=== PATIENT | male | born 1965 | race Hispanic/Latino ===

== ENCOUNTER 2018-11-20 07:18 | Day surgery (SDC) | payer OTHER ==
[2018-11-19 12:16] VITALS: BMI 39.5
--- NOTE | 2018-11-19 22:37 | HP ---
HISTORY OF PRESENT ILLNESS: This is a 53-year-old [place] male, comes for a colonoscopy for colon cancer screening. The patient has no specific GI symptoms. Bowel movements are normal. The patient has rectal bleeding. He does have family history of colon cancer. Maternal uncle had prostate and colon cancers. ALLERGIES: FLUTICASONE SPRAY. SOCIAL HISTORY: Former smoker. Alcohol, 4 to 6 beers everyday. MEDICAL ILLNESSES: 1. Obesity. 2. Diabetes. 3. Hyperlipidemia. 4. Sleep apnea. 5. Allergic rhinitis. 6. Hypertension. 7. Prostatic hypertrophy. PAST SURGICAL HISTORY: None. PHYSICAL EXAMINATION: VITAL SIGNS: His weight is 254 pounds. Pulse is 72, blood pressure 130/84. HEENT: Conjunctivae clear. CARDIOVASCULAR: First and second heart sounds are normal. LUNGS: Clear to auscultation. ABDOMEN: Soft. No organomegaly. No tenderness. No masses. EXTREMITIES: Reveal no edema. ADMITTING DIAGNOSIS: A 53-year-old Latin-[place] male, comes for a colonoscopy for colon cancer screening. Job ID: [id number]
--- NOTE | 2018-11-20 14:13 | OP ---
DATE OF PROCEDURE: 11/20/2018 PROCEDURES PERFORMED: 1. Colonoscopy with polypectomy. 2. Colonoscopy with 10-Estonian BICAP therapy at polypectomy site over the ascending colon because of mild bleeding. DESCRIPTION OF PROCEDURE: The patient was placed on his left lateral position and was given sedation by Anesthesia Department. The rectal exam was done. The scope was advanced into the rectum. No lesions were felt on rectal exam. A [employer]ax video colonoscope was introduced into the rectum and advanced all the way to the cecum. The patient had retained solid stool in the ascending colon, cecal area. Some of this area not visualized. The cecum again showed some retained stool. He has sessile ascending colon polyp just close to cecum and removed with snare cautery. However, there was mild bleeding on polypectomy. A 10-Estonian probe , the area cauterized with good hemostasis. Withdrawal of scope in the cecum, ascending colon, hepatic flexure, no other pathology. The transverse colon, splenic flexure, no pathology. A sessile descending colon polyp removed with snare cautery with good hemostasis. He also had occasional diverticula. The sigmoid colon showed no other pathology. Rectum show hemorrhoids. Although, the prep was reasonably good, he has fecal stool the right colon, which shows it difficult to visualize. Although, , I could not really see the right colon very well. DISCHARGE PLANNING: This is a 53-year-old Latin-[place] male came for a colonoscopy for cancer screening. He underwent colonoscopy with polypectomy x2, ascending colon. The patient did well postprocedure and is being discharged. DISCHARGE RECOMMENDATIONS: 1. The patient advised to call me if he develops any abdominal pain, hematochezia, or fever. 2. In the absence of any other symptoms, he will come back to me in 2 weeks. Job ID: [id number]
[2018-11-20] MEDS ORDERED: PROPOFOL 200 MG/20 ML VIAL ONE (16:42)
== END 2018-11-20 10:45 | disposition home or self-care (01) ==
LOC: SDC 07:18
PROVIDERS: ATTEND Internal Medicine Gastroenterology
PROC: 0DBK8ZX Excision of Ascending Colon, Via Natural or Artificial Opening Endoscopic, Diagnostic (ICD-10-PCS; principal; 2018-11-20)
PROC: 0DBM8ZX Excision of Descending Colon, Via Natural or Artificial Opening Endoscopic, Diagnostic (ICD-10-PCS; principal; 2018-11-20)
PROC: 0W3P8ZZ Control Bleeding in Gastrointestinal Tract, Via Natural or Artificial Opening Endoscopic (ICD-10-PCS; principal; 2018-11-20)
DX: Z12.11 Encounter for screening for malignant neoplasm of colon (principal); D12.2 Benign neoplasm of ascending colon; D12.4 Benign neoplasm of descending colon; K57.30 Diverticulosis of large intestine without perforation or abscess without bleeding; K64.9 Unspecified hemorrhoids; E11.9 Type 2 diabetes mellitus without complications; E78.5 Hyperlipidemia, unspecified; G47.30 Sleep apnea, unspecified; I10 Essential (primary) hypertension; E66.9 Obesity, unspecified; Z87.891 Personal history of nicotine dependence; Z80.0 Family history of malignant neoplasm of digestive organs; Z88.8 Allergy status to other drugs, medicaments and biological substances; Z68.39 Body mass index [BMI] 39.0-39.9, adult; Z79.82 Long term (current) use of aspirin; Z79.84 Long term (current) use of oral hypoglycemic drugs; Z79.899 Other long term (current) drug therapy
CPT/HCPCS: 88305; J2704